=== PATIENT | female | born 1970 | race American Indian/Alaskan Native ===

== ENCOUNTER 2017-10-29 13:00 | Outpatient (CLI) | payer OTHER ==
--- NOTE | 2017-10-29 18:09 | XRay Report ---
FINAL REPORT EXAM: XR HAND BILAT 3+V HISTORY: BILATERAL HAND PAIN TECHNIQUE: AP, lateral, and oblique views of the both hands PRIORS: None. FINDINGS: There is no evidence for acute fracture or dislocation. No soft tissue swelling or radiopaque foreign bodies are seen. Bony mineralization is normal and joint spaces are maintained. IMPRESSION: No acute bony or soft tissue abnormality noted.
== END 2017-10-29 13:01 | disposition home or self-care (01) ==
LOC: SPVIMAG 13:00
PROVIDERS: ATTEND Orthopaedic Surgery
DX: M79.641 Pain in right hand (principal); M79.642 Pain in left hand

== ENCOUNTER 2017-11-24 11:40 | Outpatient (CLI) | payer OTHER ==
--- NOTE | 2017-11-24 22:37 | XRay Report ---
FINAL REPORT PROCEDURE: XR SPINE CERVICAL 2-3V TECHNIQUE: Cervical spine radiographs, AP, lateral, and open-mouth odontoid views. CPT 48972 HISTORY: NECK PAIN COMPARISON: No prior studies are available for comparison. FINDINGS: Prevertebral soft tissues: Normal . Alignment: There is loss of cervical lordosis. Vertebral body heights/Disk spaces: Narrowing of intervertebral disc spaces noted at C5-6 with mild degree anterior and posterior marginal osteophyte formation.. Fracture(s): None . Facets: Normal . Bone mineralization: Normal . IMPRESSION: Cervical spondylosis at C5-6 Straightening of the cervical spine is most likely secondary to spasm.
== END 2017-11-24 11:41 | disposition home or self-care (01) ==
LOC: SPVIMAG 11:40
PROVIDERS: ATTEND Physical Medicine & Rehabilitation
DX: M47.892 Other spondylosis, cervical region (principal); M25.78 Osteophyte, vertebrae
CPT/HCPCS: 72040